=== PATIENT | male | born 1970 | race Caucasian/White ===

== ENCOUNTER 2024-02-23 17:34 | Emergency (ER) | payer BC, SELFPAY ==
--- NOTE | ~2024-02-23 | XR_ITS ---
CHEST RADIOGRAPH CLINICAL HISTORY: SOB HIGH BP DIAG COVID 02-11-24 . COMPARISON: 12/31/2011 TECHNIQUE: Single portable view of the chest. FINDINGS The cardiomediastinal silhouette is unremarkable. The lungs are clear. Visualized osseous structures and soft tissues are unremarkable. IMPRESSION: No focal infiltrate or effusion. Reviewed, dictated and finalized at location A. MATERIAL PLANNER
[2024-02-23 17:43] VITALS: BP 162/116; PULSE 88; RESP 16; TEMP 36.7; O2SAT 97
--- NOTE | 2024-02-23 21:26 | ECG_ITS ---
Test Date: 2024-02-23 22:19:54 Measurements Intervals [place] Rate: 70 P: -28 MT: 189 QRS: -26 QRSD: 102 T: -28 QT: 370 QTc: 401 Interpretive Statements SINUS RHYTHM BORDERLINE LEFT AXIS DEVIATION [QRS AXIS < -20] No previous ECG available for comparison Electronically Signed On 02-24-2024 15:10:29 CUSTOMER SERVICE ADMINISTRATOR by Colin Bob M.D.
[2024-02-23 21:57] LABS: Basophils Percent Auto 0.1 % (0.2-1.2); Eosinophils Percent Auto 0.4 % (0-4.4); Hematocrit 47.9 % (42.0-52.0); Hemoglobin 17.1 g/dL (14.0-18.0); Immature Granulocyte Absolute 0.04 K/mm3 (0.00-0.031); Immature Granulocyte Percent A 0.4 % (0-0.5); Lymphocytes Absolute Auto 0.75 K/mm3 (0.9-3.2); Lymphocytes Percent Auto 7.3 % (18.3-44.2); Mean Corpuscular HGB Conc 35.7 g/dl (32-36); Mean Corpuscular Hemoglobin 30.3 pg (26-34); Mean Corpuscular Volume 84.9 fl (80-100); Monocytes Absolute Auto 0.3 K/mm3 (0.1-0.6); Monocytes Percent Auto 2.6 % (2.6-8.5); Neutrophils Absolute Auto 9.2 K/mm3 (1.3-6.7); Neutrophils Percent Auto 89.2 % (45.5-73.1); Platelet Count Result 398 k/mm3 (150-375); Red Blood Count 5.64 M/mm3 (4.6-6.20); White Blood Count 10.3 K/mm3 (4.5-10.0)
[2024-02-23 22:07] LABS: Alanine Aminotransferase 42 U/L (6-50); Albumin Level 4.7 g/dL (3.5-5.1); Alkaline Phosphatase 73 U/L (38-126); Anion Gap 11 mmol/L (4-12); Aspartate Amino Transferase 61 U/L (17-59); Bilirubin,Total 0.7 mg/dL (0.2-1.3); Blood Urea Nitrogen 8 mg/dL (9-20); Calcium 9.1 mg/dL (8.4-10.2); Carbon Dioxide 24 mmol/L (22-30); Chloride 96 mmol/L (98-107); Estimated CRCL calculation 100 ml/min; Estimated Glomerular Filt Rate > 60; Glucose 106 mg/dL (65-110); Potassium 4.3 mmol/L (3.4-5.0); Sodium 131 mmol/L (137-145)
--- NOTE | 2024-02-23 22:22 | ECG_ITS ---
Test Date: 2024-02-23 22:24:41 Measurements Intervals [place] Rate: 68 P: 25 HI: 185 QRS: -5 QRSD: 106 T: 8 QT: 387 QTc: 412 Interpretive Statements SINUS RHYTHM Compared to ECG 02/23/2024 22:19:54 No significant changes Electronically Signed On 02-24-2024 15:10:34 ASSOCIATE DIRECTOR FINANCIAL AID by Colin Bob M.D.
[2024-02-23 22:27] VITALS: RESP 17; O2SAT 100
[2024-02-23 22:29] VITALS: O2SAT 97
[2024-02-23 22:30] VITALS: O2SAT 97
[2024-02-23 22:32] VITALS: BP 147/93; O2SAT 98
--- NOTE | 2024-02-23 22:34 | ED.RECABL ---
HPI - Recheck/Abnormal Lab/Rx General Chief Complaint: Recheck/Abnormal Lab/Rx Stated Complaint: elevated BP Time Seen by Provider: 02/23/24 21:03 History of Present Illness HPI narrative: 53-year-old male presents with his at bedside for high blood pressure. Patient states his blood pressure is normally 130s over 80s. States he has been taking [id number] anti congestion since including Sudafed frequently for the past 3 weeks for a sinus infection. He went to urgent care today and was started on steroids for sinusitis and was found have an elevated blood pressure of 160s/110s and was advised to stay his blood pressure at home and return to the emergency department for continues to increase. Patient states he bought a blood pressure cuff and has been taking all throughout the afternoon his blood pressure steadily increased throughout the day which prompted him to come to the ED. He also states that he has been increasingly more anxious today and has had to take his Xanax 4 times. He has a PCP but has not seen his PCP in 5 years but states he does go to [facility] clinic and get his blood pressure taken frequently which is usually normal. He denies chest pain, abdominal pain, vision changes, focal numbness or weakness. He is reporting intermittent shortness of breath but is attributing this to his sinusitis for which she has been prescribed an albuterol inhaler from urgent care and has been using. He has no history of hypertension but does report history of hypertension in the family. Related Data Allergies Allergy/AdvReac Type Severity Reaction Status Date / Time promethazine AdvReac Fatigued Verified 02/23/24 17:46 Review of Systems Review of Systems: All systems reviewed & are unremarkable except as noted in HPI and below Exam Narrative: GENERAL: Well-appearing, well-nourished, and in no acute distress. HEAD: Normocephalic, atraumatic. EYES: EOMI. ENT: Nares clear, no rhinorrhea or epistaxis. Mucous membranes moist. NECK: Supple. CHEST: Clear to auscultation. No respiratory distress. HEART: Regular rate and rhythm. No murmur heard. Normal peripheral pulses. ABDOMEN: Soft, nontender, nondistended, normal active bowel sounds. EXTREMITIES: Normal range of motion. No edema. SKIN: Warm, dry, no rash. NEURO: No focal deficits. Alert and oriented x3 Course Vital Signs Vital signs: Vital Signs Temperature 98.0 F 02/23/24 17:43 Pulse Rate 88 02/23/24 17:43 Respiratory Rate 16 02/23/24 17:43 Blood Pressure 162/116 H 02/23/24 17:43 Pulse Oximetry 97 02/23/24 17:43 Oxygen Delivery Room Air 02/23/24 17:43 Temperature 98.0 F 02/23/24 17:43 Pulse Rate 88 02/23/24 17:43 Respiratory Rate 17 02/23/24 22:27 Blood Pressure 147/93 H 02/23/24 22:32 Pulse Oximetry 98 02/23/24 22:32 Oxygen Delivery Room Air 02/23/24 17:43 MDM - Recheck/Abnormal Lab/Rx MDM Narrative Medical decision making narrative: 53-year-old male presents emergency department for elevated blood pressure. He is reporting some shortness of breath as well but is otherwise asymptomatic. Triage vitals with blood pressure 162/116, otherwise unremarkable. He is resting comfortably in exam bed. EKG shows sinus rhythm with rate of 60 ppm, indeterminate axis, normal [place] interval, normal QRS duration, normal QTC, no ST elevations or depressions. CBC shows mild leukocytosis of 10.3, otherwise unremarkable. Chemistries with mild hyponatremia 131 and AST of 61, no prior for comparison. Remainder of LFTs are unremarkable. No abdominal pain. Chest x-ray shows no acute cardiopulmonary findings. Patient updated on workup. BP has improved to 147/93. Discussed that his acutely elevated BP is likely multifactorial and secondary to Sudafed, prednisone and anxiety. I advised him to discontinue Sudafed, start a blood pressure log and follow closely with his PCP. Discussed the concern for starting antihypertensives in the ED given he normally has controlled blood pressure and there are several environmental factors at are likely attributing to acute elevation in his blood pressure. Return precautions were discussed. He and his are agreeable with the plan verbalized understanding. Discharged in stable condition. Lab Data 02/23/24 21:49 02/23/24 21:49 Labs: Lab Results 02/23/24 Range/Units 21:49 WBC 10.3 H (4.5-10.0) K/mm3 RBC 5.64 (4.6-6.20) M/mm3 Hgb 17.1 (14.0-18.0) g/dL Hct 47.9 (42.0-52.0) % MCV 84.9 (80-100) fl MCH 30.3 (26-34) pg MCHC 35.7 (32-36) g/dl RDW 12.0 (11.5-14.5) % Plt Count 398 H (150-375) k/mm3 MPV 9.0 (7.4-10.4) fl Immature Gran % (Auto) 0.4 (0-0.5) % Neut % (Auto) 89.2 H (45.5-73.1) % Lymph % (Auto) 7.3 L (18.3-44.2) % [place] % (Auto) 2.6 (2.6-8.5) % Eos % (Auto) 0.4 (0-4.4) % Baso % (Auto) 0.1 L (0.2-1.2) % Lymph # (Auto) 0.75 L (0.9-3.2) K/mm3 [place] # (Auto) 0.3 (0.1-0.6) K/mm3 Eos # (Auto) 0.0 (0-0.3) K/mm3 Baso # (Auto) 0.0 (0.0-0.1) K/mm3 Abs Immat Gran (auto) 0.04 H (0.00-0.031) K/mm3 Absolute Neuts (auto) 9.2 H (1.3-6.7) K/mm3 Absolute Nucleated RBC 0.000 (0.0-0.012) K/mm3 Nucleated RBC % 0.0 (0.0-0.2) % Sodium 131 L (137-145) mmol/L Potassium 4.3 (3.4-5.0) mmol/L Chloride 96 L (98-107) mmol/L Carbon Dioxide 24 (22-30) mmol/L Anion Gap 11 (4-12) mmol/L BUN 8 L (9-20) mg/dL Creatinine 0.98 (0.7-1.3) mg/dL Estim Creat Clear Calc 100 ml/min Estimated GFR > 60 (59 - ) Glucose 106 (65-110) mg/dL Calcium 9.1 (8.4-10.2) mg/dL Total Bilirubin 0.7 (0.2-1.3) mg/dL AST 61 H (17-59) U/L ALT 42 (6-50) U/L Alkaline Phosphatase 73 (38-126) U/L Total Protein 7.0 (6.3-8.2) g/dL Albumin 4.7 (3.5-5.1) g/dL Discharge Plan Discharge Clinical Impression: Asymptomatic hypertension Patient Disposition: Home, Self-Care Condition: Stable Instructions: Antibiotic Form, Hypertension (ED) Additional Instructions: Stop taking Sudafed. Take a blood pressure log as instructed and follow up with her primary care provider. Return to the emergency department if you develop chest pain, shortness of breath, vision changes, focal numbness or weakness, abdominal pain, or other concerning symptoms. Patient Language: Lithuanian Follow-up/Referrals: Gisselle,Romero Stoddard MD [Primary Care Provider] -
== END 2024-02-23 22:56 | disposition home or self-care (01) ==
PROVIDERS: Emergency Provider Physician Assistant; PCP Family Medicine
DX: I10 Essential (primary) hypertension (principal)
CPT/HCPCS: 36415; 71045; 80053; 85025; 93005; 99283